=== PATIENT | male | born 1960 | race Caucasian/White ===

== ENCOUNTER 2016-08-13 07:26 | Day surgery (SDC) | payer BC ==
[2016-08-13] MEDS ORDERED: MIDAZOLAM HCL 5 MG/5 ML VIAL IV PRN (07:32)
[2016-08-13] MEDS ORDERED: FENTANYL 250 MCG/5 ML AMP IV PRN (07:32)
[2016-08-13] MEDS ORDERED: LACTATED RINGERS 1,000 ML IV SCH (07:45)
[2016-08-13] MEDS ORDERED: MIDAZOLAM HCL 5 MG/5 ML VIAL ONE (08:54)
[2016-08-13] MEDS ORDERED: FENTANYL 250 MCG/5 ML AMP ONE (08:54)
== END 2016-08-13 10:24 | disposition home or self-care (01) ==
LOC: SDC 07:26
PROVIDERS: ATTEND Internal Medicine Gastroenterology
PROC: 0DJD8ZZ Inspection of Lower Intestinal Tract, Via Natural or Artificial Opening Endoscopic (ICD-10-PCS; principal; 2016-08-13)
DX: Z08 Encounter for follow-up examination after completed treatment for malignant neoplasm (principal); Z80.0 Family history of malignant neoplasm of digestive organs; I10 Essential (primary) hypertension; Z72.0 Tobacco use
CPT/HCPCS: 84132; 36415; 45378; J3010; J2250